=== PATIENT | male | born 1965 | race Caucasian/White ===

== ENCOUNTER 2016-08-05 21:33 | Inpatient (IN) | payer MEDICARE, OTHER ==
[~2016-08-05] VITALS: Ht 180.3 cm; Wt 86.4 kg
[2016-08-05] VITALS (9 sets, daily range): BP systolic 116–171; BP diastolic 71–108; PULSE 52–84; RESP 14–25; TEMP 97.9; O2SAT 97–100
[2016-08-05] MEDS ORDERED: ROCURONIUM INJ 50 MG/5 ML VIAL ONE (21:36)
[2016-08-05] MEDS ORDERED: PROPOFOL 1000 MG/100 ML INJ 100 ML ONE (21:43)
[2016-08-05] MEDS ORDERED: ETOMIDATE 20 MG/10 ML VIAL IV PUSH ONE (22:00)
[2016-08-05] MEDS ORDERED: fentaNYL DRIP 250 ML IV SCH (22:00)
[2016-08-05] MEDS ORDERED: SODIUM CHLOR 0.9% 1000 ML INJ 1,000 ML IV SCH (22:00)
[2016-08-05] MEDS ORDERED: PROPOFOL 1000 MG/100 ML INJ 100 ML IV SCH (22:00)
[2016-08-05] MEDS ORDERED: ROCURONIUM INJ 50 MG/5 ML VIAL IV ONE (22:00)
--- NOTE | 2016-08-05 22:03 | PD ---
HPI Chief Complaint: Altered Mental Status Time Seen by Provider: 21:50 Travel History International Travel<30 days: No Contact w/Intl Traveler<30days: No Traveled to known affect area: No History of Present Illness HPI Middle-age male was brought in by EMS after patient was found unresponsive at local hotel room. Patient has history of Down syndrome and hypertension and chronic back pain, anxiety. Patient was reported taking hydrocodone for back pain. Patient's unresponsive and unable to get any more information. EMS gave patient Narcan 0.4 mg IV without change in mental status. Patient was transported ED for evaluation. Patient's sister called the ED. Patient has history of chronic back pain and anxiety and has been taking hydrocodone and Xanax. Patient was found awake and alert and talking the phone with his sister about half an hour prior to patient was found unresponsive this evening. [facility]LY [facility] Social History Tobacco Use: No Allergies-Medications (Allergen,Severity, Reaction): Coded Allergies: No Known Allergies (Unverified , 08/05/16) Reported Meds & Prescriptions Reported Meds & Active Scripts Active Reported Hydrocodone-Acetaminophen 7.5-325 mg Tab 1 Tab PO Q8HR PRN Lisinopril 20 Mg Tab 20 Mg PO DAILY Xanax (Alprazolam) 1 Mg Tab 1 Mg PO Q8H PRN Review of Systems ROS Limitations: Altered Mental Status, Unresponsive General / Constitutional: No: Fever Eyes: No: Visual changes HENT: No: Headaches Cardiovascular: No: Chest Pain or Discomfort Respiratory: No: Shortness of Breath Gastrointestinal: No: Abdominal Pain Genitourinary: No: Dysuria Musculoskeletal: No: Pain Skin: No Rash Neurologic: No: Weakness Psychiatric: No: Depression Endocrine: No: Polydipsia Hematologic/Lymphatic: No: Easy Bruising Physical Exam Narrative GENERAL: Well-nourished, well-developed patient. SKIN: Focused skin assessment warm/dry. HEAD: Normocephalic. EYES: No scleral icterus. No injection or drainage. Pupils: Pinpoint pupils, sluggish reactive. NECK: Supple, trachea midline. No JVD or lymphadenopathy. CARDIOVASCULAR: Regular rate and rhythm without murmurs, gallops, or rubs. RESPIRATORY: Breath sounds equal bilaterally. No accessory muscle use. GASTROINTESTINAL: Abdomen soft, nondistended. MUSCULOSKELETAL: No cyanosis, or edema. BACK: without obvious deformity. Neurologic exam: Patient is unresponsive. Patient is not responding to painful stimuli. Deep tendon reflexes 1+ and equal. Negative Babinski. Data Data Last Documented VS Vital Signs Date Time Temp Pulse Resp B/P Pulse Ox O2 Delivery O2 Flow Rate FiO2 08/06/16 01:00 48 14 108/69 99 Ventilator 40 08/05/16 21:35 97.9 Orders Rocuronium Inj (Zemuron Inj) (08/05/16 21:36) Propofol 1000 Mg/100 Ml Inj (Diprivan 10 (08/05/16 21:43) Electrocardiogram (08/05/16 21:50) Complete Blood Count With Diff (08/05/16 21:50) Comprehensive Metabolic Panel (08/05/16 21:50) Creatine Kinase (Cpk) (08/05/16 21:50) Troponin I (08/05/16 21:50) B-Type Natriuretic Peptide (08/05/16 21:50) Prothrombin Time / Inr (Pt) (08/05/16 21:50) Act Partial Throm Time (Ptt) (08/05/16 21:50) Blood Culture (08/05/16 21:50) Urinalysis - C+S If Indicated (08/05/16 21:50) Chest, Single Ap (08/05/16 21:50) Ct Brain W/O Iv Contrast(Rout) (08/05/16 21:50) Iv Access Insert/Monitor (08/05/16 21:50) Ecg Monitoring (08/05/16 21:50) Oximetry (08/05/16 21:50) Urinary Catheter Insert/Apply (08/05/16 21:50) Drug Screen, Random Urine (08/05/16 21:50) Alcohol (Ethanol) (08/05/16 21:50) Salicylates (Aspirin) (08/05/16 21:50) Tylenol (Acetaminophen) (08/05/16 21:50) Ct Cerv Spine W/O Contrast (08/05/16 21:50) Lactic Acid (08/05/16 21:50) Meli-Gastric Tube Insert/Mon (08/05/16 21:54) Etomidate Inj (Amidate Inj) (08/05/16 22:00) Rocuronium Inj (Zemuron Inj) (08/05/16 22:00) Propofol 1000 Mg/100 Ml Inj (Diprivan 10 (08/05/16 22:00) ^ Infusion (08/05/16 21:54) RASS (08/05/16 21:54) Neurological Rass Scale JOSELINE.Q2H (08/05/16 21:54) Neurological Rass Scale Q30MX2,Q2HX4,Q4H (08/05/16 21:54) Fentanyl Drip (Fentanyl Drip) (08/05/16 22:00) Sodium Chlor 0.9% 1000 Ml Inj (Ns 1000 M (08/05/16 22:00) Restraints Non-Violent JOSELINE.Q3H (08/05/16 21:55) Arterial Blood Gas (Abg) (08/05/16 ) Sodium Chlor 0.9% 1000 Ml Inj (Ns 1000 M (08/05/16 22:30) Resp Ventilation- Volume (08/05/16 ) Urine Culture (08/05/16 22:00) Ceftriaxone Inj (Rocephin Inj) (08/06/16 01:15) Vancomycin Inj (Vancomycin Inj) (08/06/16 01:15) Admit Order (Ed Use Only) (08/06/16 01:09) Labs Laboratory Tests Test 08/05/16 08/05/16 08/05/16 22:00 22:25 23:04 Prothrombin Time 11.9 SEC Prothromb Time International 1.1 RATIO Ratio Activated Partial 27.8 SEC Thromboplast Time Sodium Level 143 MEQ/L Potassium Level 3.7 MEQ/L Chloride Level 109 MEQ/L Carbon Dioxide Level 26.7 MEQ/L Anion Gap 7 MEQ/L Blood Urea Nitrogen 20 MG/DL Creatinine 0.82 MG/DL Estimat Glomerular Filtration 81 ML/MIN Rate Random Glucose 88 MG/DL Calcium Level 8.0 MG/DL Total Bilirubin 0.8 MG/DL Aspartate Amino Transf 82 U/L (AST/SGOT) Alanine Aminotransferase 82 U/L (ALT/SGPT) Alkaline Phosphatase 48 U/L Total Creatine Kinase 159 U/L Troponin I LESS THAN 0.02 NG/ML B-Type Natriuretic Peptide 11 PG/ML Total Protein 6.7 GM/DL Albumin 3.5 GM/DL Salicylates Level LESS THAN 1.7 MG/DL Urine Opiates Screen NEG Acetaminophen Level LESS THAN 2.0 MCG/ML Urine Barbiturates Screen NEG Urine Amphetamines Screen NEG Urine Benzodiazepines Screen POS Urine Cocaine Screen NEG Urine Cannabinoids Screen NEG Ethyl Alcohol Level LESS THAN 3 MG/DL White Blood Count 7.1 TH/MM3 Red Blood Count 4.52 MIL/MM3 Hemoglobin 14.3 GM/DL Hematocrit 40.4 % Mean Corpuscular Volume 89.3 FL Mean Corpuscular Hemoglobin 31.6 PG Mean Corpuscular Hemoglobin 35.4 % Concent Red Cell Distribution Width 13.3 % Platelet Count 141 TH/MM3 Mean Platelet Volume 9.4 FL Neutrophils (%) (Auto) 59.6 % Lymphocytes (%) (Auto) 31.5 % Monocytes (%) (Auto) 6.7 % Eosinophils (%) (Auto) 1.7 % Basophils (%) (Auto) 0.5 % Neutrophils # (Auto) 4.2 TH/MM3 Lymphocytes # (Auto) 2.2 TH/MM3 Monocytes # (Auto) 0.5 TH/MM3 Eosinophils # (Auto) 0.1 TH/MM3 Basophils # (Auto) 0.0 TH/MM3 CBC Comment DIFF FINAL Differential Comment Urine Color YELLOW Urine Turbidity HAZY Urine pH 6.0 Urine Specific [place] 1.020 Urine Protein 30 mg/dL Urine Glucose (UA) NEG mg/dL Urine Ketones NEG mg/dL Urine Occult Blood TRACE Urine Nitrite NEG Urine Bilirubin NEG Urine Urobilinogen LESS THAN 2.0 MG/DL Urine Leukocyte Esterase LARGE Urine RBC 0-3 /hpf Urine WBC 15-19 /hpf Urine Bacteria FEW /hpf Microscopic Urinalysis Comment CULTURE INDICATED Lactic Acid Level 0.6 mmol/L Blood Gas Puncture Site LT RADIAL Blood Gas Patient Temperature 98.6 Blood Gas HCO3 23 mmol/L Blood Gas Base Excess -1.4 mmol/L Blood Gas Oxygen Saturation 95 % Arterial Blood pH 7.40 Arterial Blood Partial 38 mmHg Pressure CO2 Arterial Blood Partial 82 mmHG Pressure O2 Arterial Blood Oxygen Content 18.7 Vol % Arterial Blood 1.2 % Carboxyhemoglobin Arterial Blood Methemoglobin 0.8 % Blood Gas Hemoglobin 14.0 G/DL Oxygen Delivery Device VENTILATOR Blood Gas Ventilator Setting Blood Gas Inspired Oxygen 40 % MDM Medical Decision Making Medical Screen Exam Complete: Yes Emergency Medical Condition: Yes Interpretation(s) 22:22 PM. EKG shows sinus rhythm nonspecific ST-T wave change. Chest x-ray shows no consolidation. ET tube above the gege. ET tube will be retracted. 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 No evidence of acute hemorrhage or edema. Extensive benign sinus disease. Rui Jones MD Chest X-Ray 08/05/162149 Signed Impressions: Service Date/Time: Friday, August 05, 2016 22:03 - CONCLUSION: 1. Endotracheal tube with tip just above the gege, this can be retracted 2 cm. 2. Clear lungs. Jeremiah Zuniga MD Cervical Spine CT 08/05/162149 Signed Impressions: Service Date/Time: Friday, August 05, 2016 23:33 - CONCLUSION: Degenerative disc disease at C5-6. No evidence of acute fracture. Rui Jones MD 1:04 AM. CBC within normal limit. CMP within normal limits. BUN 20. AST 82. ALT 82. Cardiac enzymes are normal. Lactic acid 0.6. Urine drug screen positive for benzodiazepine. Acetaminophen negative. Salicylate negative. Alcohol negative. UA positive for WBC and bacteria. Differential Diagnosis Differential diagnosis including drug-induced mood disorder, TIA, CVA, OR, pneumonia, UTI, sepsis, electrolyte imbalance, dehydration. Narrative Course Middle-aged male was brought in by EMS after patient was found unresponsive. Patient did not respond to Narcan 0.4 mg IV. Patient was intubated for airway protection. Normal saline solution 1 25 cc an hour. Propofol drip and fentanyl drip as needed for sedation. Critical Care Narrative Aggregate critical care time was 60 minutes. Time to perform other separately billable procedures was not included in the critical care time. My time did not include minutes spent treating any other patients simultaneously or on activities that did not directly contribute to the patient's treatment. The services I provided to this patient were to treat and/or prevent clinically significant deterioration that could result in: I provided critical care services requiring my management, as noted below: Chart data review, documentation time, medication orders and management, vital sign assessments/reviewing monitor data, ordering and reviewing lab tests, ordering and interpreting/reviewing x-rays and diagnostic studies, care of the patient and discussion of the patient with the admitting physicians. Procedures Procedure Narrative After the risks and benefits were discussed the following procedure was performed: INTUBATION: The patient was put in optimal position for the procedure. Rapid sequence intubation was initiated by me using 20 milligrams of etomidate IV and 50 milligrams of rocuronium IV. The patient was intubated with a 8 [place] cuffed endotracheal tube. Tube placement was confirmed by visualization of the tube and balloon passing through the cords, capnometry and subsequent chest x- ray. Breath sounds were equal and well aerated bilaterally postintubation. No breath sounds over stomach. Patient tolerated procedure well. Diagnosis Primary Impression: Respiratory failure Qualified Code: J96.00 - Acute respiratory failure, unspecified whether with hypoxia or hypercapnia Additional Impressions: UTI (urinary tract infection) Qualified Code: N30.00 - Acute cystitis without hematuria Medication overdose Qualified Code: T50.904A - Medication overdose, undetermined intent, initial encounter Juan Miguel Valadez MD Aug 05, 2016 22:03
--- NOTE | 2016-08-05 22:15 | RADRPT ---
EXAM DATE/TIME: 08/05/2016 22:03 [facility] COMPARISON: No previous studies available for comparison. INDICATIONS : Evaluate intubation MEDICAL HISTORY : None. SURGICAL HISTORY : None. ENCOUNTER: Initial ACUITY: 1 day PAIN SCORE: Non-responsive. LOCATION: chest FINDINGS: A single view of the chest demonstrates the lungs to be symmetrically aerated without evidence of mas s, infiltrate or effusion. Endotracheal tube with tip just above the gege. Nasogastric tube tip in stomach. The cardiomediastinal contours are unremarkable. Osseous structures are intact. CONCLUSION: 1. Endotracheal tube with tip just above the gege, this can be retracted 2 cm. 2. Clear lungs. Jeremiah Zuniga MD on August 05, 2016 at 22:13 Board Certified Radiologist. This report was verified electronically.
[2016-08-05 22:24] LABS: AUTOMATED NEUTROPHIL # 4.2 TH/MM3 (1.8-7.7); BASOPHIL % 0.5 % (0.0-2.0); EOSINOPHIL # 0.1 TH/MM3 (0-0.4); EOSINOPHIL % 1.7 % (0.0-4.0); HEMATOCRIT 40.4 % (39.0-51.0); HEMO FLAGS DIFF FINAL; LYMPH % 31.5 % (9.0-44.0); LYMPHOCYTE # 2.2 TH/MM3 (1.0-4.8); MEAN CELL VOLUME 89.3 FL (80.0-100.0); MEAN CORPUSCULAR HEMOGLOBIN 31.6 PG (27.0-34.0); MEAN CORPUSCULAR HGB CONC 35.4 % (32.0-36.0); MONO % 6.7 % (0.0-8.0); NEUT % 59.6 % (16.0-70.0); PLATELET COUNT 141 TH/MM3 (150-450); RED BLOOD COUNT 4.52 MIL/MM3 (4.50-5.90); RED CELL DISTRIBUTION WIDTH 13.3 % (11.6-17.2); WHITE BLOOD COUNT 7.1 TH/MM3 (4.0-11.0)
[2016-08-05] MEDS ORDERED: SODIUM CHLOR 0.9% 1000 ML INJ 1,000 ML IV ONE (22:30)
[2016-08-05 22:38] LABS: APTT (PATIENT) 27.8 SEC (24.3-30.1); INTERNATIONAL NORMALIZED RATIO 1.1 RATIO; PROTHROMBIN TIME - PATIENT 11.9 SEC (9.8-11.6)
[2016-08-05 22:52] LABS: ACETAMINOPHEN LESS THAN 2.0 MCG/ML (10.0-30.0); ALKALINE PHOSPHATASE 48 U/L (45-117); ALT (GPT) 82 U/L (12-78); ANION GAP 7 MEQ/L (5-15); AST (GOT) 82 U/L (15-37); BICARBONATE 26.7 MEQ/L (21.0-32.0); BLOOD UREA NITROGEN 20 MG/DL (7-18); CHLORIDE 109 MEQ/L (98-107); CREATINE KINASE 159 U/L (39-308); GLOMERULAR FILTRATION RATE 81 ML/MIN (>89); POTASSIUM 3.7 MEQ/L (3.5-5.1); SODIUM (NA) 143 MEQ/L (136-145); TOTAL BILIRUBIN ADULT 0.8 MG/DL (0.2-1.0)
[2016-08-05 22:53] LABS: BLOOD, URINE TRACE (NEG); GLUCOSE,URINE NEG (NEG); KETONE, URINE NEG (NEG); NITRITE,URINE NEG (NEG); URINE COLOR YELLOW (YELLW/STRAW)
[2016-08-05 23:00] LABS: AMPHETAMINE, URINE NEG (NEG); BARBITURATES, URINE NEG (NEG); COCAINE, URINE NEG (NEG)
[2016-08-05 23:07] LABS: RBC, URINE 0-3 /hpf (0-3); WBC, URINE 15-19 /hpf (0-5)
[2016-08-05 23:08] LABS: BACTERIA, URINE FEW /hpf; COMMENT (UR) CULTURE INDICATED; CULTURE IF INDICATED CULTURE INDICATED
--- NOTE | 2016-08-05 23:50 | RADRPT ---
EXAM DATE/TIME: 08/05/2016 23:33 [facility] COMPARISON: No previous studies available for comparison. INDICATIONS : Found unresponsive on ground. RADIATION DOSE: 56.77 CTDIvol (mGy) MEDICAL HISTORY : Non-responsive. SURGICAL HISTORY : Non-responsive. ENCOUNTER: Initial ACUITY: 1 day PAIN SCALE: Non-responsive LOCATION: cranial TECHNIQUE: Multiple contiguous axial images were obtained of the head. Using automated exposure control and adj ustment of the mA and/or kV according to patient size, radiation dose was kept as low as reasonably a chievable to obtain optimal diagnostic quality images. FINDINGS: CEREBRUM: Patient had a large right previous temporal stroke with mature areas of encephalomalacia. There is di ffuse atrophy present . The ventricles are normal for age except for some exvacuo dilatation of the r ight lateral ventricle.. No evidence of midline shift, mass lesion, hemorrhage or acute infarction. No extra-axial fluid collections are seen. POSTERIOR FOSSA: The cerebellum and brainstem are intact. The 4th ventricle is midline. The cerebellopontine angle i s unremarkable. EXTRACRANIAL: The visualized portion of the orbits is intact. Benign maxillary and ethmoidal sinus disease bilatera lly SKULL: The calvaria is intact. No evidence of skull fracture. 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 No evidence of acute hemorrhage or edema. Extensive benign sinus disease. Rui Jones MD on August 05, 2016 at 23:47 Board Certified Radiologist. This report was verified electronically.
--- NOTE | 2016-08-05 23:52 | RADRPT ---
EXAM DATE/TIME: 08/05/2016 23:33 [facility] COMPARISON: No previous studies available for comparison. INDICATIONS : Found unresponsive on ground. RADIATION DOSE: 33.75 CTDIvol (mGy) MEDICAL HISTORY : Non-responsive. SURGICAL HISTORY : Non-responsive. ENCOUNTER: Initial ACUITY: 1 day PAIN SCALE: Non-responsive LOCATION: neck TECHNIQUE: Volumetric scanning of the cervical spine was performed. Multiplanar reconstructions in the sagittal, coronal and oblique axial planes were performed. Using automated exposure control and adjustment o f the mA and/or kV according to patient size, radiation dose was kept as low as reasonably achievable to obtain optimal diagnostic quality images. FINDINGS: VERTEBRAE: Normal vertebral body height. Disc space narrowing and sclerosis at C5-6 ALIGNMENT: No evidence of subluxation. C2-C3: The bony spinal canal is normal in size. No evidence of disc bulge or herniation. The neural forami na are bilaterally patent. C3-C4: The bony spinal canal is normal in size. No evidence of disc bulge or herniation. The neural forami na are bilaterally patent. C4-C5: The bony spinal canal is normal in size. No evidence of disc bulge or herniation. The neural forami na are bilaterally patent. C5-C6: The bony spinal canal is normal in size. No evidence of disc bulge or herniation. The neural forami na are bilaterally patent. C6-C7: The bony spinal canal is normal in size. No evidence of disc bulge or herniation. The neural forami na are bilaterally patent. C7-T1: The bony spinal canal is normal in size. No evidence of disc bulge or herniation. The neural forami na are bilaterally patent. CONCLUSION: Degenerative disc disease at C5-6. No evidence of acute fracture. Rui Jones MD on August 05, 2016 at 23:51 Board Certified Radiologist. This report was verified electronically.
[2016-08-06] VITALS (25 sets, daily range): BP systolic 104–155; BP diastolic 61–98; PULSE 46–70; RESP 14–22; TEMP 97.7–98.2; O2SAT 96–100
[2016-08-06] MEDS ORDERED: XANA1TAB2 PO (00:17)
[2016-08-06] MEDS ORDERED: LISI-515 PO (00:17)
[2016-08-06] MEDS ORDERED: HYDR-3580 PO (00:17)
[2016-08-06] MEDS ORDERED: VANCOMYCIN INJ 1,000 MG in SODIUM CHLOR 0.9% 250 ML INJ 250 ML IV ONE (01:15)
[2016-08-06] MEDS ORDERED: cefTRIAXone INJ 1,000 MG in SODIUM CHLORIDE 0.9% INJ 100 ML IV ONE (01:15)
--- NOTE | 2016-08-06 01:30 | HHI.HP ---
HPI Service Critical Care Medicine Primary Care Physician Non-Staff Admission Diagnosis respiratory failure. UTI. Possible overdose. Diagnosis: Travel History International Travel<30 Days: No Contact w/Intl Traveler <30 Da: No Traveled to Known Affected Are: No History of Present Illness Middle-age male with a history of chronic back pain and anxiety on narcotic medications enzyme exit home was brought in by EMS after patient was found unresponsive at local hotel room. He was reported taking hydrocodone for back pain. Patient's unresponsive and unable to get any more information. EMS gave patient Narcan 0.4 mg IV without change in mental status. He was intubated in the emergency department by the ER attending for an airway protection. Review of Systems ROS Unable to obtain Past Family Social History Allergies: Coded Allergies: No Known Allergies (Unverified , 08/05/16) Past Medical History Chronic back pain Anxiety Past Surgical History Unable to obtain Reported Medications Reported Meds & Active Scripts Active Reported Hydrocodone-Acetaminophen 7.5-325 mg Tab 1 Tab PO Q8HR PRN Lisinopril 20 Mg Tab 20 Mg PO DAILY Xanax (Alprazolam) 1 Mg Tab 1 Mg PO Q8H PRN Active Ordered Medications Current Medications Medications (Trade) Dose Ordered Sig/Zack Route PRN Reason Start Time Stop Time Status Last Admin Dose Admin Propofol 100 ml @ 0 mls/hr TITRATE IV 08/05/16 22:00 08/05/16 22:09 Fentanyl Citrate 250 ml @ 0 mls/hr TITRATE IV 08/05/16 22:00 Sodium Chloride 1,000 ml @ 125 mls/hr Q8H IV 08/05/16 22:00 08/05/16 22:38 Ceftriaxone Sodium 1000 mg/ Sodium Chloride 100 ml @ 200 mls/hr ONCE ONCE IV 08/06/16 01:15 08/06/16 01:44 Vancomycin HCl/ Sodium Chloride (Vancomycin Inj/ NS 250 ml Inj) 250 ml @ 250 mls/hr ONCE ONCE IV 08/06/16 01:15 08/06/16 02:14 Family History Unable to obtain Social History Unable to obtain Physical Exam Vital Signs Vital Signs Date Time Temp Pulse Resp B/P Pulse Ox O2 Delivery O2 Flow Rate FiO2 08/06/16 01:00 48 14 108/69 99 Ventilator 40 08/06/16 00:30 48 14 104/67 99 Ventilator 40 08/06/16 00:15 48 14 108/69 99 Ventilator 40 08/06/16 00:00 48 14 129/81 99 Ventilator 40 08/05/16 23:35 52 14 116/71 97 Ventilator 08/05/16 23:16 55 14 120/79 97 Ventilator 40 08/05/16 22:45 62 14 164/97 100 Ventilator 40 08/05/16 22:36 14 100 Ventilator 40 08/05/16 22:30 72 14 125/82 98 Ventilator 08/05/16 22:15 72 14 171/108 100 Ventilator 40 08/05/16 22:10 76 14 168/98 99 Ventilator 40 08/05/16 21:45 40 08/05/16 21:35 97.9 84 25 153/100 98 Physical Exam GENERAL: Middle-aged male sedated and intubated SKIN: Warm and dry. HEAD: Normocephalic. EYES: No scleral icterus. No injection or drainage. NECK: Supple, trachea midline. No JVD or lymphadenopathy. CARDIOVASCULAR: Regular rate and rhythm without murmurs, gallops, or rubs. RESPIRATORY: Breath sounds equal bilaterally. No accessory muscle use. GASTROINTESTINAL: Abdomen soft, non-tender, nondistended. MUSCULOSKELETAL: No cyanosis, or edema. BACK: Nontender without obvious deformity. No CVA tenderness. EXTREMITIES: No clubbing cyanosis or edema Laboratory Laboratory Tests Test 08/05/16 08/05/16 22:00 22:25 White Blood Count 7.1 Red Blood Count 4.52 Hemoglobin 14.3 Hematocrit 40.4 Mean Corpuscular Volume 89.3 Mean Corpuscular Hemoglobin 31.6 Mean Corpuscular Hemoglobin 35.4 Concent Red Cell Distribution Width 13.3 Platelet Count 141 Mean Platelet Volume 9.4 Neutrophils (%) (Auto) 59.6 Lymphocytes (%) (Auto) 31.5 Monocytes (%) (Auto) 6.7 Eosinophils (%) (Auto) 1.7 Basophils (%) (Auto) 0.5 Neutrophils # (Auto) 4.2 Lymphocytes # (Auto) 2.2 Monocytes # (Auto) 0.5 Eosinophils # (Auto) 0.1 Basophils # (Auto) 0.0 CBC Comment DIFF FINAL Differential Comment Prothrombin Time 11.9 Prothromb Time International 1.1 Ratio Activated Partial 27.8 Thromboplast Time Urine Color YELLOW Urine Turbidity HAZY Urine pH 6.0 Urine Specific [place] 1.020 Urine Protein 30 Urine Glucose (UA) NEG Urine Ketones NEG Urine Occult Blood TRACE Urine Nitrite NEG Urine Bilirubin NEG Urine Urobilinogen LESS THAN 2.0 Urine Leukocyte Esterase LARGE Urine RBC 0-3 Urine WBC 15-19 Urine Bacteria FEW Microscopic Urinalysis Comment CULTURE INDICATED Sodium Level 143 Potassium Level 3.7 Chloride Level 109 Carbon Dioxide Level 26.7 Anion Gap 7 Blood Urea Nitrogen 20 Creatinine 0.82 Estimat Glomerular Filtration 81 Rate Random Glucose 88 Calcium Level 8.0 Total Bilirubin 0.8 Aspartate Amino Transf 82 (AST/SGOT) Alanine Aminotransferase 82 (ALT/SGPT) Alkaline Phosphatase 48 Total Creatine Kinase 159 Troponin I LESS THAN 0.02 B-Type Natriuretic Peptide 11 Total Protein 6.7 Albumin 3.5 Salicylates Level LESS THAN 1.7 Urine Opiates Screen NEG Acetaminophen Level LESS THAN 2.0 Urine Barbiturates Screen NEG Urine Amphetamines Screen NEG Urine Benzodiazepines Screen POS Urine Cocaine Screen NEG Urine Cannabinoids Screen NEG Ethyl Alcohol Level LESS THAN 3 Lactic Acid Level 0.6 Date/Time Procedure Status Source Growth 08/05/16 22:10 Aerobic Blood Culture Received Blood Peripheral Pending 08/05/16 22:10 Anaerobic Blood Culture Received Blood Peripheral Pending 08/05/16 22:00 Urine Culture Received Urine Random Urine Pending Result Diagram: 08/05/16219908/05/162199 Imaging Last [address] 08/05/162149 Signed Impressions: Service Date/Time: Friday, August 05, 2016 23:33 - CONCLUSION: 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 No evidence of acute hemorrhage or edema. Extensive benign sinus disease. Rui Jones MD Chest X-Ray 08/05/162149 Signed Impressions: Service Date/Time: Friday, August 05, 2016 22:03 - CONCLUSION: 1. Endotracheal tube with tip just above the gege, this can be retracted 2 cm. 2. Clear lungs. Jeremiah Zuniga MD Cervical Spine CT 08/05/162149 Signed Impressions: Service Date/Time: Friday, August 05, 2016 23:33 - CONCLUSION: Degenerative disc disease at C5-6. No evidence of acute fracture. Rui Jones MD Assessment and Plan Assessment and Plan Respiratory failure - Intubated for an airway protection - Vent bundle - Admit to ICU - Weaning when more alert Hypertension - Lisinopril Altered mental status - Most likely overdose due to hydrocodone and alprazolam - CT head negative - Monitor for withdrawal - Supportive care DVT GI prophylaxis - Subcutaneous heparin and Pepcid Critical Care: The total critical care time was 35 minutes. Time to perform other separately billable procedures was not included in the critical care time. Dany Elizabeth MD Aug 06, 2016 01:30
[2016-08-06 01:35] LABS: BLOOD GAS BASE EXCESS -1.4 mmol/L (-2-2); BLOOD GAS CARBOXYHEMOGLOBIN 1.2 % (0-4); BLOOD GAS HCO3 23 mmol/L (22-26); BLOOD GAS METHEMOGLOBIN 0.8 % (0-2); BLOOD GAS O2 HGB SATURATION 95 % (90-100); BLOOD GAS OXYGEN CONTENT 18.7 Vol % (12.0-20.0); BLOOD GAS PCO2 38 mmHg (38-42); BLOOD GAS PO2 82 mmHG (61-120); CRITICAL VALUE NO; OXYGEN DEVICE VENTILATOR; TEMP CORR TO 98.6
[2016-08-06 01:36] LABS: FIO2 40 %
[2016-08-06 01:37] LABS: DRAW SITE LT RADIAL; NUMBER OF ARTERIAL PUNCTURES 2; STAT NO; ULNAR PULSE PRESENT
[2016-08-06] MEDS ORDERED: POTASSIUM CHLORIDE 25 MEQ EFFERVESCENT TAB PO PRN (01:45)
[2016-08-06] MEDS ORDERED: MAGNESIUM SULFATE INJ 4 GM in SODIUM CHLORIDE 0.9% INJ 92 ML IV PRN (01:45)
[2016-08-06] MEDS: NITROFURANTOIN MONOHYD MACROCR 100 MG CAP PO SCH ×3 (01:45→18:33)
[2016-08-06] MEDS ORDERED: POTASSIUM PHOSPHATE MONOBASIC 500 MG TAB PO PRN (01:45)
[2016-08-06] MEDS ORDERED: SODIUM CHLORIDE 0.9% FLUSH 10 ML FLUSH PRN (01:45)
[2016-08-06] MEDS ORDERED: POTASSIUM CHLOR 20 MEQ PREMIX 100 ML IV PRN ×2 (01:45)
[2016-08-06] MEDS ORDERED: PROPOFOL 1000 MG/100 ML INJ 100 ML IV SCH (01:45)
[2016-08-06] MEDS ORDERED: POTASSIUM PHOSPHATE INJ 30 MMOL in SODIUM CHLOR 0.9% 250 ML INJ 250 ML IV PRN (01:45)
[2016-08-06] MEDS ORDERED: CHLORHEXIDINE GLUCONATE 2 % 1 PACK (2 CLOTHS) TOP PRN (01:45)
[2016-08-06] MEDS ORDERED: METOCLOPRAMIDE HCL 10 MG/2 ML VIAL IV PRN (01:45)
[2016-08-06] MEDS ORDERED: ACETAMINOPHEN 325 MG TAB PO PRN (01:45)
[2016-08-06] MEDS ORDERED: ONDANSETRON HCL 4 MG/2 ML VIAL IV PRN (01:45)
[2016-08-06] MEDS ORDERED: SODIUM PHOSPHATE INJ 30 MMOL in SODIUM CHLOR 0.9% 250 ML INJ 240 ML IV PRN (01:45)
[2016-08-06] MEDS ORDERED: MAGNESIUM HYDROXIDE SUSP 30 ML CUP PO PRN (01:45)
[2016-08-06] MEDS ORDERED: POTASSIUM PHOSPHATE MONOBASIC 500 MG TAB PO/TUBE PRN (01:45)
[2016-08-06] MEDS ORDERED: POTASSIUM CHLOR 40 MEQ PREMIX 100 ML IV PRN ×2 (01:45)
[2016-08-06] MEDS ORDERED: MAGNESIUM SULFATE INJ 2 GM in SODIUM CHLORIDE 0.9% INJ 96 ML IV PRN (01:45)
[2016-08-06] MEDS ORDERED: PROCHLORPERAZINE 25 MG SUPP RECTAL PRN (01:45)
[2016-08-06] MEDS ORDERED: RESP: ALBUTEROL 2.5 MG/IPRATROPIUM 0.5 MG NEB (PRN) INH (01:45)
[2016-08-06] MEDS ORDERED: SENNOSIDES 8.6 MG TAB PO PRN (01:45)
[2016-08-06] MEDS ORDERED: MISCELLANEOUS NURSING INFORMATION XX SCH (01:45)
[2016-08-06] MEDS ORDERED: MAGNESIUM OXIDE 400 MG TAB PO PRN (01:45)
[2016-08-06] MEDS ORDERED: LACTULOSE SYRUP 20 GM/30 ML CUP PO PRN (01:45)
[2016-08-06] MEDS ORDERED: BISACODYL 10 MG SUPP RECTAL PRN (01:45)
[2016-08-06] MEDS: SODIUM CHLOR 0.9% 1000 ML INJ 1,000 ML IV SCH ×2 (01:47→08:21)
[2016-08-06] MEDS: HEPARIN SODIUM - SQ 10,000 UNITS/ML VIAL SQ SCH ×3 (02:00→18:33)
[2016-08-06] MEDS: CHLORHEXIDINE GLUCONATE 2 % 1 PACK (2 CLOTHS) TOP SCH (03:59)
[2016-08-06] MEDS ORDERED: GLUCAGON 1 MG/ML VIAL OTHER PRN (09:00)
[2016-08-06] MEDS: INSULIN NovoLIN REGULAR SUPPLEMENTAL SCALE SQ SCH ×3 (09:00→21:00)
[2016-08-06] MEDS: SODIUM CHLORIDE 0.9% FLUSH 10 ML FLUSH SCH ×2 (09:00→21:00)
[2016-08-06] MEDS ORDERED: DEXTROSE 50% IN WATER 50 ML VIAL(D50) IV PRN (09:00)
[2016-08-06] MEDS: DOCUSATE SODIUM 50 MG/SENNA 8.6 MG TAB PO SCH ×2 (10:23→20:59)
[2016-08-06] MEDS: LACTULOSE SYRUP 20 GM/30 ML CUP PO SCH ×2 (10:23→20:59)
[2016-08-06] MEDS: LISINOPRIL 20 MG TAB PO SCH (10:23)
[2016-08-06] MEDS: FAMOTIDINE 20 MG TAB PO SCH ×2 (10:23→20:59)
[2016-08-06 10:58] LABS: AUTOMATED NEUTROPHIL # 5.1 TH/MM3 (1.8-7.7); BASOPHIL % 0.5 % (0.0-2.0); EOSINOPHIL # 0.1 TH/MM3 (0-0.4); EOSINOPHIL % 1.3 % (0.0-4.0); HEMATOCRIT 39.8 % (39.0-51.0); HEMO FLAGS DIFF FINAL; LYMPH % 20.6 % (9.0-44.0); LYMPHOCYTE # 1.5 TH/MM3 (1.0-4.8); MEAN CELL VOLUME 92.6 FL (80.0-100.0); MEAN CORPUSCULAR HEMOGLOBIN 31.2 PG (27.0-34.0); MEAN CORPUSCULAR HGB CONC 33.7 % (32.0-36.0); MONO % 6.7 % (0.0-8.0); NEUT % 70.9 % (16.0-70.0); PLATELET COUNT 102 TH/MM3 (150-450); RED BLOOD COUNT 4.29 MIL/MM3 (4.50-5.90); RED CELL DISTRIBUTION WIDTH 13.6 % (11.6-17.2); WHITE BLOOD COUNT 7.2 TH/MM3 (4.0-11.0)
[2016-08-06 11:18] LABS: ALT (GPT) 72 U/L (12-78); ANION GAP 8 MEQ/L (5-15); AST (GOT) 67 U/L (15-37); BICARBONATE 22.9 MEQ/L (21.0-32.0); BLOOD UREA NITROGEN 17 MG/DL (7-18); CHLORIDE 111 MEQ/L (98-107); GLOMERULAR FILTRATION RATE 102 ML/MIN (>89); MAGNESIUM 2.1 MG/DL (1.5-2.5); POTASSIUM 3.6 MEQ/L (3.5-5.1); SODIUM (NA) 142 MEQ/L (136-145)
[2016-08-06 11:21] LABS: ALKALINE PHOSPHATASE 49 U/L (45-117); TOTAL BILIRUBIN ADULT 0.7 MG/DL (0.2-1.0)
[2016-08-06] MEDS: DEXT 5%-NACL 0.9% 1000 ML INJ 1,000 ML IV SCH ×2 (11:38→23:45)
--- NOTE | 2016-08-06 14:26 | EKG ---
Date Performed: 08/05/2016 Time Performed: 22:16:44 PTAGE: 89 years EKG: NORMAL Sinus rhythm NONDIAGNOSTIC Q WAVES IN THE LATERAL LEAD NONSPECIFIC LATERAL T WAVE ABNORMALITY Clinical correlatio n is needed ABNORMAL ECG NO PREVIOUS TRACING DOCTOR: Jackson Austin Interpretating Date/Time 08/06/2016 14:24:52
--- NOTE | 2016-08-06 17:45 | RADRPT ---
EXAM DATE/TIME: 08/06/2016 17:03 [facility] COMPARISON: No previous studies available for comparison. INDICATIONS : Increased lab values. MEDICAL HISTORY : Hypertension. Anxiety. Alcohol use. Tobacco use. Chronic back pain. Down syndrome. SURGICAL HISTORY : None. Unable to obtain. ENCOUNTER: Initial ACUITY: 1 day PAIN SCORE: Nonresponsive. LOCATION: Bilateral upper quadrant MEASUREMENTS: LIVER: 17.6 cm length COMMON DUCT: 5 mm RIGHT KIDNEY: 10.5 x 5.1 x 4.7 cm SPLEEN: 11.7 cm length FINDINGS: LIVER: The liver is diffusely echogenic. No mass or ductal dilatation. Hepatopedal flow within the portal ve in. COMMON DUCT: No intraluminal mass or stone visualized. GALLBLADDER: Contains no stones, demonstrates no wall thickening or pericholecystic fluid. PANCREAS: Totally obscured by bowel gas. RIGHT KIDNEY: No hydronephrosis, stone or mass. SPLEEN: No focal lesion. CONCLUSION: 1. Hepatic steatosis. Frantz Pruitt Jr., MD on August 06, 2016 at 17:37 Board Certified Radiologist. This report was verified electronically.
[2016-08-07] VITALS (27 sets, daily range): BP systolic 124–174; BP diastolic 62–111; PULSE 56–85; RESP 15–31; TEMP 98–98.2; O2SAT 94–100
[2016-08-07] MEDS: cefTRIAXone INJ 1,000 MG in SODIUM CHLORIDE 0.9% INJ 100 ML IV SCH (00:46)
[2016-08-07] MEDS: INSULIN NovoLIN REGULAR SUPPLEMENTAL SCALE SQ SCH ×4 (03:00→21:00)
[2016-08-07] MEDS: HEPARIN SODIUM - SQ 10,000 UNITS/ML VIAL SQ SCH ×3 (03:52→18:50)
[2016-08-07] MEDS: CHLORHEXIDINE GLUCONATE 2 % 1 PACK (2 CLOTHS) TOP SCH (03:52)
--- NOTE | 2016-08-07 05:52 | RADRPT ---
EXAM DATE/TIME: 08/07/2016 04:02 [facility] COMPARISON: No previous studies available for comparison. INDICATIONS : Shortness of breath. MEDICAL HISTORY : None. SURGICAL HISTORY : None. ENCOUNTER: Subsequent ACUITY: 2 days PAIN SCORE: 0/10 LOCATION: Bilateral chest FINDINGS: A single view of the chest demonstrates the lungs to be symmetrically aerated without evidence of mas s, infiltrate or effusion. Endotracheal tube in good position The cardiomediastinal contours are unre markable. Osseous structures are intact. NG-tube is within the stomach CONCLUSION: I suspect 2 radiopaque catheters visualized , an NG tube and an endotracheal tube both are in good p osition. Rui Jones MD on August 07, 2016 at 5:49 Board Certified Radiologist. This report was verified electronically.
[2016-08-07 06:30] LABS: AUTOMATED NEUTROPHIL # 5.4 TH/MM3 (1.8-7.7); BASOPHIL # 0.1 TH/MM3 (0-0.2); BASOPHIL % 0.6 % (0.0-2.0); EOSINOPHIL # 0.2 TH/MM3 (0-0.4); EOSINOPHIL % 1.9 % (0.0-4.0); HEMATOCRIT 44.1 % (39.0-51.0); HEMO FLAGS DIFF FINAL; LYMPH % 31.4 % (9.0-44.0); LYMPHOCYTE # 2.9 TH/MM3 (1.0-4.8); MEAN CORPUSCULAR HEMOGLOBIN 32.1 PG (27.0-34.0); MEAN CORPUSCULAR HGB CONC 34.8 % (32.0-36.0); MONO % 7.9 % (0.0-8.0); NEUT % 58.2 % (16.0-70.0); PLATELET COUNT 115 TH/MM3 (150-450); RED BLOOD COUNT 4.79 MIL/MM3 (4.50-5.90); RED CELL DISTRIBUTION WIDTH 13.6 % (11.6-17.2); WHITE BLOOD COUNT 9.4 TH/MM3 (4.0-11.0)
[2016-08-07 07:01] LABS: ALKALINE PHOSPHATASE 57 U/L (45-117); ALT (GPT) 69 U/L (12-78); ANION GAP 8 MEQ/L (5-15); AST (GOT) 60 U/L (15-37); BLOOD UREA NITROGEN 9 MG/DL (7-18); CHLORIDE 111 MEQ/L (98-107); GLOMERULAR FILTRATION RATE 85 ML/MIN (>89); MAGNESIUM 2.4 MG/DL (1.5-2.5); POTASSIUM 3.6 MEQ/L (3.5-5.1); SODIUM (NA) 143 MEQ/L (136-145); TOTAL BILIRUBIN ADULT 0.8 MG/DL (0.2-1.0)
[2016-08-07] MEDS: FAMOTIDINE 20 MG TAB PO SCH ×2 (09:19→21:44)
[2016-08-07] MEDS: LACTULOSE SYRUP 20 GM/30 ML CUP PO SCH ×2 (09:19→21:44)
[2016-08-07] MEDS: DOCUSATE SODIUM 50 MG/SENNA 8.6 MG TAB PO SCH ×2 (09:19→21:44)
[2016-08-07] MEDS: NITROFURANTOIN MONOHYD MACROCR 100 MG CAP PO SCH ×2 (09:20→18:49)
[2016-08-07] MEDS: LISINOPRIL 20 MG TAB PO SCH (09:20)
[2016-08-07] MEDS: SODIUM CHLORIDE 0.9% FLUSH 10 ML FLUSH SCH ×2 (09:21→21:00)
--- NOTE | 2016-08-07 10:34 | HHI.CCPN ---
Subjective Remarks/Hospital Course Middle-age male with a history of chronic back pain and anxiety on narcotic medications enzyme exit home was brought in by EMS after patient was found unresponsive at local hotel room. He was reported taking hydrocodone for back pain. Patient's unresponsive and unable to get any more information. EMS gave patient Narcan 0.4 mg IV without change in mental status. He was intubated in the emergency department by the ER attending for an airway protection. 08/07 Patient is more awake and alert today now on CPAP trials. Afebrile. Objective Vital Signs Date Time Temp Pulse Resp B/P Pulse Ox O2 Delivery O2 Flow Rate FiO2 08/07/16 09:13 98 Nasal Cannula 2.00 08/07/16 07:16 35 08/07/16 06:00 56 08/07/16 04:00 98.2 16 127/67 Intake and Output 08/06/16 08/06/16 08/07/16 08:00 16:00 00:00 Intake Total 790 ml 900 ml 913 ml Output Total 650 ml 900 ml 900 ml Balance 140 ml 0 ml 13 ml Result Diagram: 08/07/16 0441 08/07/16 0441 Other Results Laboratory Tests Test 08/07/16 04:41 White Blood Count 9.4 TH/MM3 Red Blood Count 4.79 MIL/MM3 Hemoglobin 15.4 GM/DL Hematocrit 44.1 % Mean Corpuscular Volume 92.0 FL Mean Corpuscular Hemoglobin 32.1 PG Mean Corpuscular Hemoglobin 34.8 % Concent Red Cell Distribution Width 13.6 % Platelet Count 115 TH/MM3 Mean Platelet Volume 9.3 FL Neutrophils (%) (Auto) 58.2 % Lymphocytes (%) (Auto) 31.4 % Monocytes (%) (Auto) 7.9 % Eosinophils (%) (Auto) 1.9 % Basophils (%) (Auto) 0.6 % Neutrophils # (Auto) 5.4 TH/MM3 Lymphocytes # (Auto) 2.9 TH/MM3 Monocytes # (Auto) 0.7 TH/MM3 Eosinophils # (Auto) 0.2 TH/MM3 Basophils # (Auto) 0.1 TH/MM3 CBC Comment DIFF FINAL Differential Comment Prothrombin Time 11.0 SEC Prothromb Time International 1.0 RATIO Ratio Sodium Level 143 MEQ/L Potassium Level 3.6 MEQ/L Chloride Level 111 MEQ/L Carbon Dioxide Level 24.0 MEQ/L Anion Gap 8 MEQ/L Blood Urea Nitrogen 9 MG/DL Creatinine 0.79 MG/DL Estimat Glomerular Filtration 85 ML/MIN Rate Random Glucose 133 MG/DL Calcium Level 8.6 MG/DL Phosphorus Level 1.7 MG/DL Magnesium Level 2.4 MG/DL Total Bilirubin 0.8 MG/DL Aspartate Amino Transf 60 U/L (AST/SGOT) Alanine Aminotransferase 69 U/L (ALT/SGPT) Alkaline Phosphatase 57 U/L Total Protein 7.5 GM/DL Albumin 3.4 GM/DL Imaging Last Impressions Chest X-Ray 08/07/16 0000 Signed Impressions: Service Date/Time: Sunday, August 07, 2016 04:02 - CONCLUSION: I suspect 2 radiopaque catheters visualized , an NG tube and an endotracheal tube both are in good position. Rui Jones MD Liver Ultrasound 08/06/16 0000 Signed Impressions: Service Date/Time: Saturday, August 06, 2016 17:03 - CONCLUSION: 1. Hepatic steatosis. 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 No evidence of acute hemorrhage or edema. Extensive benign sinus disease. Rui Jones MD Cervical Spine CT 08/05/162149 Signed Impressions: Service Date/Time: Friday, August 05, 2016 23:33 - CONCLUSION: Degenerative disc disease at C5-6. No evidence of acute fracture. Rui Jones MD Objective Remarks GENERAL: Patient remains intubated more awake and alert SKIN: Warm and dry. HEAD: Normocephalic. EYES: No scleral icterus. No injection or drainage. NECK: Supple, trachea midline. No JVD or lymphadenopathy. CARDIOVASCULAR: Regular rate and rhythm without murmurs, gallops, or rubs. RESPIRATORY: Breath sounds equal bilaterally. No accessory muscle use. GASTROINTESTINAL: Abdomen soft, non-tender, nondistended. MUSCULOSKELETAL: No cyanosis, or edema. Neuro: Intubated. A/P Assessment and Plan VDRF Hypertension Altered mental status..improving - Most likely overdose due to hydrocodone and alprazolam Mild thrombocytopenia Elevated AST UTI Plan Neuro: On low dose Diprivan infusion for sedation. Daily sedation vacation. Monitor neuro status. 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 No evidence of acute hemorrhage or edema. Extensive benign sinus disease UDS: + Benzos Pulm: Continue with vent support keep sat >92% Bronchodilators, ICU vent bundle, Continue with CPAP trials and possible extubation today. CV: Monitor HR and BP keep MAP>65mmHg. On Lisinopril 20mg daily : Monitor renal function, I/O's, electrolytes replacement per protocol. On D5NS@75ml/hr GI: On Glucerna 1m5 with goal rate 50ml/hr. US liver: Hepatic steatosis ID: Continue with abx ( Rocephin) for UTI. Monitor for signs of infections ( fever, WBC) BC 08/05: NGTD Endo: SSI if needed for glycemic control Heme: Monitor CBC GI prophylaxis- on Pepcid DVT prophylaxis- on Heparin SQ level 3 Conchita Costa MD Aug 07, 2016 10:34
[2016-08-07] MEDS: DEXT 5%-NACL 0.9% 1000 ML INJ 1,000 ML IV SCH (11:40)
[2016-08-08] VITALS (7 sets, daily range): BP systolic 122–167; BP diastolic 58–77; PULSE 57–73; RESP 16–22; TEMP 98–98.4; O2SAT 93–99
[2016-08-08] MEDS: HEPARIN SODIUM - SQ 10,000 UNITS/ML VIAL SQ SCH ×2 (01:51→11:10)
[2016-08-08] MEDS: cefTRIAXone INJ 1,000 MG in SODIUM CHLORIDE 0.9% INJ 100 ML IV SCH (01:51)
[2016-08-08 04:25] LABS: AUTOMATED NEUTROPHIL # 4.3 TH/MM3 (1.8-7.7); BASOPHIL % 0.7 % (0.0-2.0); EOSINOPHIL # 0.3 TH/MM3 (0-0.4); HEMATOCRIT 37.4 % (39.0-51.0); HEMO FLAGS DIFF FINAL; LYMPH % 30.6 % (9.0-44.0); LYMPHOCYTE # 2.3 TH/MM3 (1.0-4.8); MEAN CELL VOLUME 89.9 FL (80.0-100.0); MEAN CORPUSCULAR HGB CONC 34.5 % (32.0-36.0); NEUT % 56.7 % (16.0-70.0); PLATELET COUNT 107 TH/MM3 (150-450); RED BLOOD COUNT 4.16 MIL/MM3 (4.50-5.90); RED CELL DISTRIBUTION WIDTH 13.4 % (11.6-17.2); WHITE BLOOD COUNT 7.6 TH/MM3 (4.0-11.0)
[2016-08-08 04:52] LABS: ALT (GPT) 47 U/L (12-78); ANION GAP 10 MEQ/L (5-15); AST (GOT) 32 U/L (15-37); BICARBONATE 26.6 MEQ/L (21.0-32.0); BLOOD UREA NITROGEN 11 MG/DL (7-18); CHLORIDE 107 MEQ/L (98-107); GLOMERULAR FILTRATION RATE 106 ML/MIN (>89); MAGNESIUM 2.1 MG/DL (1.5-2.5); POTASSIUM 3.3 MEQ/L (3.5-5.1); SODIUM (NA) 144 MEQ/L (136-145)
[2016-08-08 04:55] LABS: ALKALINE PHOSPHATASE 44 U/L (45-117); TOTAL BILIRUBIN ADULT 0.8 MG/DL (0.2-1.0)
--- NOTE | 2016-08-08 07:18 | HHI.CCPN ---
Subjective Remarks/Hospital Course Middle-age male with a history of chronic back pain and anxiety on narcotic medications enzyme exit home was brought in by EMS after patient was found unresponsive at local hotel room. He was reported taking hydrocodone for back pain. Patient's unresponsive and unable to get any more information. EMS gave patient Narcan 0.4 mg IV without change in mental status. He was intubated in the emergency department by the ER attending for an airway protection. 08/07 Patient is more awake and alert today now on CPAP trials. Afebrile. 08/08: awake, alert, extubated yesterday. appears to be doing well. no complaints. Objective Vital Signs Date Time Temp Pulse Resp B/P Pulse Ox O2 Delivery O2 Flow Rate FiO2 08/08/16 06:00 57 08/08/16 04:00 98.0 22 122/58 96 08/07/16 20:30 21 08/07/16 09:13 Nasal Cannula 2.00 Intake and Output 08/07/16 08/07/16 08/08/16 08:00 16:00 00:00 Intake Total 1128 ml 1675 ml Output Total 1100 ml 1500 ml Balance 28 ml 175 ml Result Diagram: 08/08/16 0342 08/08/16 0342 Imaging Last Impressions Chest X-Ray 08/07/16 0000 Signed Impressions: Service Date/Time: Sunday, August 07, 2016 04:02 - CONCLUSION: I suspect 2 radiopaque catheters visualized , an NG tube and an endotracheal tube both are in good position. Rui Jones MD Liver Ultrasound 08/06/16 0000 Signed Impressions: Service Date/Time: Saturday, August 06, 2016 17:03 - CONCLUSION: 1. Hepatic steatosis. 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 No evidence of acute hemorrhage or edema. Extensive benign sinus disease. Rui Jones MD Cervical Spine CT 08/05/162149 Signed Impressions: Service Date/Time: Friday, August 05, 2016 23:33 - CONCLUSION: Degenerative disc disease at C5-6. No evidence of acute fracture. Rui Jones MD Objective Remarks GENERAL: middle-aged male, lying in bed, awake, alert. SKIN: Warm and dry. HEAD: Normocephalic. EYES: No scleral icterus. No injection or drainage. NECK: trachea midline. No JVD CARDIOVASCULAR: Regular rate and rhythm without murmurs, gallops, or rubs. RESPIRATORY: Breath sounds equal bilaterally. No accessory muscle use. clear to auscultation. on room air. GASTROINTESTINAL: Abdomen soft, non-tender, nondistended. MUSCULOSKELETAL: No cyanosis, or edema. Neuro: RASS 0. cam -. fc x 4. gcs 15. A/P Assessment and Plan Assessment: middle-aged male s/p unintentional overdose of narcotic medication. family in town now. I think the patient is stable for d/c home at this point. will make sure he can void on his own and tolerate po. Plan: Hypertension Lisinopril 20mg daily UTI Currently on Rocephin. will await speciation and convert to oral medication. plan for 14 day regimen given complicated UTI (male gender). OOB regular diet DVT prophylaxis- on Heparin SQ stop pepcid. Dispo: at minimum, does not require ICU and can go to floor. possibly home today. Carl Garcia MD Aug 08, 2016 07:18
[2016-08-08] MEDS: LISINOPRIL 20 MG TAB PO SCH (08:08)
[2016-08-08] MEDS: NITROFURANTOIN MONOHYD MACROCR 100 MG CAP PO SCH (08:09)
[2016-08-08] MEDS: SODIUM CHLORIDE 0.9% FLUSH 10 ML FLUSH SCH (09:00)
[2016-08-08] MEDS: LACTULOSE SYRUP 20 GM/30 ML CUP PO SCH (09:00)
[2016-08-08] MEDS: DOCUSATE SODIUM 50 MG/SENNA 8.6 MG TAB PO SCH (09:00)
[2016-08-08] MEDS ORDERED: NITR100C4 PO (12:32)
== END 2016-08-08 13:45 | disposition home or self-care (01) | DRG 917 ==
LOC: NEPC 21:33 → EDBD 08-06 01:11 → NEDA 08-06 01:11 → HIMW 08-06 03:30
PROVIDERS: ADMIT Internal Medicine Critical Care Medicine; ATTEND Internal Medicine Critical Care Medicine
PROC: 0BH17EZ Insertion of Endotracheal Airway into Trachea, Via Natural or Artificial Opening (ICD-10-PCS; principal; 2016-08-05)
PROC: 5A1935Z Respiratory Ventilation, Less than 24 Consecutive Hours (ICD-10-PCS; 2016-08-05)
DX: T40.2X1A Poisoning by other opioids, accidental (unintentional), initial encounter (principal); J96.00 Acute respiratory failure, unspecified whether with hypoxia or hypercapnia; N39.0 Urinary tract infection, site not specified; D69.6 Thrombocytopenia, unspecified; K76.0 Fatty (change of) liver, not elsewhere classified; T42.4X1A Poisoning by benzodiazepines, accidental (unintentional), initial encounter; Y92.59 Other trade areas as the place of occurrence of the external cause; I10 Essential (primary) hypertension; Q90.9 Down syndrome, unspecified; F41.9 Anxiety disorder, unspecified; G89.29 Other chronic pain; M54.9 Dorsalgia, unspecified
CPT/HCPCS: 31500; 36600; 70450; 71010; 72125; 76705; 76937; 80053; 80307; 81001; 82140; 82550; 82805; 82948; 83605; 83735; 83880; 84100; 84484; 85025; 85610; 85730; 87040; 87077; 87086; 87186; 87641; 93005; 94002; 94003; 96360; 96361; J0696; J1644; J3370; J7030; J7042; J7050